=== PATIENT | female | born 1945 | race Two or more races ===

== ENCOUNTER 2016-09-20 16:36 | Emergency (ER) | payer MEDICARE ==
[~2016-09-20] VITALS: Ht 157.5 cm; Wt 85.0 kg
[2016-09-20 17:08] LABS: HEMATOCRIT 34.6 % (37.0-47.0); HEMOGLOBIN 10.2 g/dl (12.0-16.0); IMMATURE GRANULOCYTES 0.4 % (0.0-1.0); MEAN CELL VOLUME 67.4 fL CALC (80.0-100.0); MEAN CORPUSCULAR HGB 19.9 pG CALC (26.0-32.0); MEAN CORPUSCULAR HGB CONC 29.5 g/L CALC (32.0-36.0); NEUT# 4.99 thou/uL (2.00-7.15); RED BLOOD COUNT 5.13 mill/uL (4.20-5.60); RED CELL DISTRI WIDTH 22.2 % (11.5-15.5)
[2016-09-20 17:24] LABS: PROTHROMBIN TIME 10.3 SECONDS (9.0-12.5)
[2016-09-20 17:27] LABS: ALKALINE PHOSPHATASE 112 u/l (38-126); ANION GAP 17 (6-22 (CALC)); BILIRUBIN, TOTAL 0.5 mg/dL (0.0-1.4); BUN 17 mg/dL (8-23); BUN/CREATININE RATIO 23 (12-20 (CALC)); CALCIUM 8.9 mg/dL (8.4-10.2); CARBON DIOXIDE 24 mmol/l (22-30); CHLORIDE 106 mmol/l (95-108); CREATININE 0.7 mg/dL (0.5-1.0); GFR > 60 ML/MIN (>=60 (CALC)); GFR FOR AFR.AMER. > 60 ML/MIN (>=60 (CALC)); GLUCOSE 125 mg/dL (82-115); POTASSIUM 3.6 mmol/l (3.5-5.1); SGOT/AST 27 u/l (9-36); SGPT/ALT 22 u/l (11-66); SODIUM 142 mmol/l (137-146); TOTAL PROTEIN 7.9 g/dL (6.3-8.2)
[2016-09-20 17:38] LABS: MYOGLOBIN 20 ng/mL (0 - 62)
[2016-09-20 18:56] VITALS: BP 144/65
== END 2016-09-20 18:56 | disposition short-term general hospital (02) ==
LOC: ED 16:36
PROVIDERS: Emergency Medicine
DX: I63.9 Cerebral infarction, unspecified (principal); R29.810 Facial weakness; G81.94 Hemiplegia, unspecified affecting left nondominant side; R29.704 NIHSS score 4; R94.31 Abnormal electrocardiogram [ECG] [EKG]; H53.9 Unspecified visual disturbance

== ENCOUNTER 2022-03-12 13:58 | Observation (INO) | payer MEDICARE ==
[~2022-03-12] VITALS: Ht 157.5 cm; Wt 113.6 kg
[2022-03-12] VITALS (21 sets, daily range): BP systolic 135–178; BP diastolic 46–74
[~2022-03-12 13:58] MED LIST: FERRAPLUS 90 PO; MILLIPRED5 M1
[2022-03-12 14:38] LABS: HEMATOCRIT 23.9 % (37.0-47.0); IMMATURE GRANULOCYTES 0.4 % (0.0-5.0); MEAN CELL VOLUME 64.1 fL CALC (80.0-100.0); MEAN CORPUSCULAR HGB 16.4 pG CALC (26.0-32.0); MEAN CORPUSCULAR HGB CONC 25.5 g/dL CAL (32.0-36.0); NEUT# 7.89 thou/uL (2.00-7.15); RED BLOOD COUNT 3.73 mill/uL (4.20-5.60); RED CELL DISTRI WIDTH 20.8 % (11.5-15.5)
[2022-03-12 14:41] LABS: HEMOGLOBIN 6.1 g/dl (12.0-16.0)
[2022-03-12 14:50] LABS: ALBUMIN 3.5 g/dL (3.2-5.0); ALKALINE PHOSPHATASE 81 u/l (38-126); ANION GAP 10 (6-22 (CALC)); BILIRUBIN, TOTAL 0.7 mg/dL (0.0-1.4); BUN 14 mg/dL (8-23); BUN/CREATININE RATIO 23 (12-20 (CALC)); CARBON DIOXIDE 25 mmol/l (22-30); CHLORIDE 108 mmol/l (95-108); CREATININE 0.6 mg/dL (0.5-1.0); GFR FOR AFR.AMER. > 60 ML/MIN (>=60 (CALC)); GFR OTHER RACES > 60 ML/MIN (>=60 (CALC)); LIPASE 57 u/l (23-300); POTASSIUM 3.2 mmol/l (3.5-5.1); SGOT/AST 20 u/l (9-36); SODIUM 140 mmol/l (137-146)
[2022-03-12 14:55] LABS: PROTHROMBIN TIME 10.4 SECONDS (9.0-12.5)
[2022-03-13] VITALS (11 sets, daily range): BP systolic 131–190; BP diastolic 44–81
[2022-03-13 00:48] LABS: HEMATOCRIT 29.1 % (37.0-47.0)
[2022-03-13 00:49] LABS: HEMOGLOBIN 8.2 g/dl (12.0-16.0)
[2022-03-13 06:31] LABS: HEMATOCRIT 30.2 % (37.0-47.0); HEMOGLOBIN 8.6 g/dl (12.0-16.0)
[2022-03-13 13:17] LABS: URINE BILIRUBIN - DIPSTICK NEGATIVE (NEGATIVE); URINE BLOOD DIPSTICK SMALL (NEGATIVE); URINE COLOR YELLOW; URINE GLUCOSE - DIPSTICK NEGATIVE (NEGATIVE); URINE KETONE NEGATIVE (NEGATIVE); URINE LEUK ESTERASE TRACE (NEGATIVE); URINE PH 6.5 (4.5-8.0); URINE PROTEIN - DIPSTICK NEGATIVE (NEG-TRACE); URINE UROBILINOGEN - DIPSTICK 0.2 E.U./dL (0.2)
[2022-03-13 13:19] LABS: URINE NITRITE - DIPSTICK NEGATIVE (Negative)
[2022-03-13 13:39] LABS: URINE BACTERIA MANY hpf; URINE EPITHELIAL CELLS FEW EPI/hpf (0-FEW); URINE WBC 0-2 WBC/hpf (0-5)
[2022-03-13 13:51] LABS: HEMATOCRIT 32.6 % (37.0-47.0); HEMOGLOBIN 9.1 g/dl (12.0-16.0)
[2022-03-13] MEDS ORDERED: OMEPRAZOLE20 MG PO (15:20)
[2022-03-13 17:57] LABS: HEMATOCRIT 32.9 % (37.0-47.0); HEMOGLOBIN 9.3 g/dl (12.0-16.0)
[2022-03-14 04:06] VITALS: BP 143/57
[2022-03-14 04:50] LABS: MEAN CELL VOLUME 67.6 fL CALC (80.0-100.0); MEAN CORPUSCULAR HGB 19.3 pG CALC (26.0-32.0); MEAN CORPUSCULAR HGB CONC 28.6 g/dL CAL (32.0-36.0); RED BLOOD COUNT 4.14 mill/uL (4.20-5.60); RED CELL DISTRI WIDTH 25.7 % (11.5-15.5)
[2022-03-14 05:08] LABS: ANION GAP 6 (6-22 (CALC)); BUN 8 mg/dL (8-23); BUN/CREATININE RATIO 13 (12-20 (CALC)); CARBON DIOXIDE 28 mmol/l (22-30); CHLORIDE 106 mmol/l (95-108); CREATININE 0.6 mg/dL (0.5-1.0); GFR FOR AFR.AMER. > 60 ML/MIN (>=60 (CALC)); GFR OTHER RACES > 60 ML/MIN (>=60 (CALC)); MAGNESIUM 2.2 mg/dL (1.6-2.3); POTASSIUM 3.6 mmol/l (3.5-5.1); SODIUM 137 mmol/l (137-146)
[2022-03-14 06:23] VITALS: BP 140/49
[2022-03-14 11:19] VITALS: BP 154/61
[2022-03-14] MEDS ORDERED: PROTONIX40 M2 PO (11:53)
[2022-03-14 15:00] VITALS: BP 102/50
[2022-03-19] MEDS ORDERED: AMOXICILLIN500 MG PO (12:41)
[2022-03-19] MEDS ORDERED: CLARITHROMYCIN500 MG PO (12:41)
== END 2022-03-14 14:42 | disposition home or self-care (01) ==
LOC: ED 13:58 → ED-I 16:00 → ED 17:09 → MS2 17:10
PROVIDERS: Nurse Practitioner; ADMIT Internal Medicine; ATTEND Internal Medicine
DX: D62 Acute posthemorrhagic anemia (principal); G70.00 Myasthenia gravis without (acute) exacerbation; K64.8 Other hemorrhoids; K29.60 Other gastritis without bleeding; K44.9 Diaphragmatic hernia without obstruction or gangrene
CPT/HCPCS: J1756; P9016; Q9967; S0164

== ENCOUNTER 2022-04-24 17:12 | Emergency (ER) | payer MEDICARE ==
[~2022-04-24] VITALS: Ht 157.5 cm; Wt 81.6 kg
[2022-04-24] VITALS (8 sets, daily range): BP systolic 110–159; BP diastolic 41–83
[~2022-04-24 17:12] MED LIST changes: +AMOXICILLIN500 MG PO; +CLARITHROMYCIN500 MG PO; +OMEPRAZOLE20 MG PO; +PROTONIX40 M2 PO
[2022-04-24 18:48] LABS: HEMATOCRIT 40.9 % (37.0-47.0); HEMOGLOBIN 12.2 g/dl (12.0-16.0); IMMATURE GRANULOCYTES 0.4 % (0.0-5.0); MEAN CELL VOLUME 81.5 fL CALC (80.0-100.0); MEAN CORPUSCULAR HGB 24.3 pG CALC (26.0-32.0); MEAN CORPUSCULAR HGB CONC 29.8 g/dL CAL (32.0-36.0); NEUT# 9.29 thou/uL (2.00-7.15); RED BLOOD COUNT 5.02 mill/uL (4.20-5.60); RED CELL DISTRI WIDTH 25.8 % (11.5-15.5)
[2022-04-24 19:00] LABS: ALBUMIN 3.8 g/dL (3.2-5.0); ALKALINE PHOSPHATASE 101 u/l (38-126); ANION GAP 9 (6-22 (CALC)); BUN 21 mg/dL (8-23); BUN/CREATININE RATIO 25 (12-20 (CALC)); CARBON DIOXIDE 26 mmol/l (22-30); CHLORIDE 107 mmol/l (95-108); CREATININE 0.8 mg/dL (0.5-1.0); GFR FOR AFR.AMER. > 60 ML/MIN (>=60 (CALC)); GFR OTHER RACES > 60 ML/MIN (>=60 (CALC)); LIPASE 93 u/l (23-300); POTASSIUM 4.4 mmol/l (3.5-5.1); SGOT/AST 27 u/l (9-36); SODIUM 138 mmol/l (137-146); TOTAL PROTEIN 6.6 g/dL (6.3-8.2)
[2022-04-24 19:03] LABS: PROTHROMBIN TIME 9.9 SECONDS (9.0-12.5)
[2022-04-24 19:09] LABS: BILIRUBIN, TOTAL 0.4 mg/dL (0.0-1.4)
== END 2022-04-24 20:57 | disposition home or self-care (01) ==
LOC: ED 17:12
PROVIDERS: Nurse Practitioner
DX: K92.1 Melena (principal); I10 Essential (primary) hypertension
CPT/HCPCS: Q9967

== ENCOUNTER 2022-09-18 18:46 | Emergency (ER) | payer MEDICARE ==
[~2022-09-18] VITALS: Ht 157.5 cm; Wt 70.0 kg
[2022-09-18 19:08] VITALS: BP 137/104
[2022-09-18 19:15] VITALS: BP 149/61
[2022-09-18 19:30] VITALS: BP 154/66
[2022-09-18 19:46] VITALS: BP 156/57
[2022-09-18 20:01] VITALS: BP 154/56
[2022-09-18 20:11] VITALS: BP 154/56
== END 2022-09-18 20:13 | disposition home or self-care (01) ==
LOC: ED 18:46
DX: T55.0X1A Toxic effect of soaps, accidental (unintentional), initial encounter (principal); H10.211 Acute toxic conjunctivitis, right eye; I10 Essential (primary) hypertension; G70.00 Myasthenia gravis without (acute) exacerbation